=== PATIENT | female | born 1985 | race American Indian/Alaskan Native ===

== ENCOUNTER 2017-08-01 10:08 | Inpatient (IN) | payer BC ==
[2017-07-29 09:14] VITALS: BMI 25.8
[2017-08-01] MEDS ORDERED: Bacitracin Ointment 30 GM TUBE ONE (10:18)
[2017-08-01] MEDS ORDERED: Vasopressin 20 Units/ml Inj ONE (10:19)
[2017-08-01] MEDS ORDERED: cefOXitin IV 1 gm in Dextrose 0 GM/0 ML BAG IVPB ONE (10:19)
[2017-08-01] MEDS ORDERED: Propofol 10 mg/ml Inj (20 ML) ONE (11:39)
[2017-08-01] MEDS ORDERED: Midazolam 2 MG/2 ML VIAL ONE (11:39)
[2017-08-01] MEDS ORDERED: Rocuronium 10 mg/ml (5 ml) ONE ×2 (11:47→12:27)
[2017-08-01] MEDS ORDERED: ceFAZolin 1 gm in NS 2 GM/200 ML BAG IVPB ONE (11:56)
[2017-08-01] MEDS ORDERED: Neostigmine Methylsulfate 3mg/3ml Syringe IV ONE (12:25)
[2017-08-01] MEDS ORDERED: HYDROmorphone 0.5 mg/0.5 ml ISec IVP PRN (14:11)
[2017-08-01] MEDS ORDERED: Sodium Chloride 0.9% 500 ML IV ONE (14:11)
[2017-08-01] MEDS ORDERED: Lactated Ringer's 1,000 ML IV SCH (14:15)
[2017-08-01] MEDS ORDERED: HYDROmorphone 1 mg/ml ISec ONE ×3 (14:23→14:58)
--- NOTE | 2017-08-01 14:32 | PCM.SURG1 ---
Surgeon's Initial Post Op Note - Surgeon's Notes Surgeon: Dr. Turner Joshua Location Worker: Dr. Ortiz Type of Anesthesia: General Endo Anesthesia Administered By: Dr. Dawn Pre-Operative Diagnosis: Multiple Fibroid Uterus Operative Findings: Multiple Fibroids X 12. Pelvic and Omental Adhesion. Right Ovarian cyst, Hemorrhagic Post-Operative Diagnosis: Multiple Fibroid Uterus. Pelvic and Omental Adhesions. Right Ovarian Cyst, Hemorrhagic. Anemia Operation Performed: Multiple Abdominal Myomectomy. Lysis of Pelvic and Omental Adhesions. Aspiration of hemorrhagic ovarian cyst. ( Vertical skin incision. Interceed X 3 placed) Specimen/Specimens Removed: Fibroids Estimated Blood Loss: EBL {In ML}: 800 Blood Products Given: PRBC (2 Units of Pack cells transfused) Drains Used: No Drains Post-Op Condition: Good Date of Surgery/Procedure: 08/01/17 Time of Surgery/Procedure: 12:30
[2017-08-01] MEDS: Oxycodone/Acetaminophen 5/325 mg Tab PO PRN ×2 (19:36→23:36)
[2017-08-01 19:45] LABS: BASO # 0.1 K/uL (0.0-0.2); BASO % 0.5 % (0.0-2.0); EOS % 0.1 % (0.0-4.0); HEMOGLOBIN 9.1 g/dL (11.0-16.0); LYMPH # 1.4 K/uL (1.0-4.3); LYMPH % 8.7 % (20.0-40.0); MEAN CORPUSCULAR HGB CONC 31.7 g/dL (33.0-37.0); MEAN PLATELET VOLUME 8.6 fL (7.2-11.7); MONO # 0.9 K/uL (0.0-0.8); MONO % 5.8 % (0.0-10.0); NEUT # 13.7 K/uL (1.8-7.0); NEUT % 84.9 % (50.0-75.0); PLATELET COUNT 292 K/uL (130-400); RBC 4.33 Mil/uL (3.80-5.20); RED CELL DISTRIBUTION WIDTH 24.1 % (11.5-14.5)
[2017-08-01 19:49] LABS: WHITE BLOOD COUNT 16.1 K/uL (4.8-10.8)
[2017-08-01 19:50] LABS: MEAN CELL VOLUME 66.1 fL (81.0-99.0)
[2017-08-01] MEDS ORDERED: cefOXitin IV 2 gm in Dextrose 2 GM/50 ML BAG IVPB SCH (20:00)
[2017-08-01] MEDS ORDERED: cefOXitin IV 2 gm in Saline 0 GM/0 ML BAG IVPB ONE (20:18)
[2017-08-01] MEDS: cefOXitin 2 GM in Sodium Chloride 0.9% 100 ML IV SCH (20:50)
[2017-08-01 20:59] LABS: ANISOCYTOSIS SLIGHT; HYPOCHROMIC SLIGHT; LYMPHOCYTE 11 % (20-40); MONOCYTE 5 % (0-10); NEUTROPHIL 84 % (50-75); PLATELET ESTIMATE NORMAL (NORMAL); POIKILOCYTOSIS SLIGHT; TOTAL CELLS COUNTED 100
[2017-08-01 21:00] LABS: MICROCYTOSIS SLIGHT; OVALOCYTES SLIGHT
[2017-08-01 21:01] LABS: BURR CELLS SLIGHT; TARGET CELLS SLIGHT
[2017-08-02] MEDS: Morphine 4 MG/ML VIAL IVP PRN ×3 (00:17→11:23)
[2017-08-02] MEDS: cefOXitin 2 GM in Sodium Chloride 0.9% 100 ML IV SCH ×3 (04:18→20:05)
[2017-08-02] MEDS: Oxycodone/Acetaminophen 5/325 mg Tab PO PRN ×5 (05:57→22:07)
[2017-08-02 07:12] LABS: BASO % 0.3 % (0.0-2.0); EOS % 0.2 % (0.0-4.0); HEMOGLOBIN 7.9 g/dL (11.0-16.0); LYMPH # 1.4 K/uL (1.0-4.3); LYMPH % 10.5 % (20.0-40.0); MEAN CELL VOLUME 65.2 fL (81.0-99.0); MEAN CORPUSCULAR HEMOGLOBIN 21.5 pg (27.0-31.0); MEAN CORPUSCULAR HGB CONC 32.9 g/dL (33.0-37.0); MEAN PLATELET VOLUME 8.5 fL (7.2-11.7); MONO # 0.9 K/uL (0.0-0.8); MONO % 7.1 % (0.0-10.0); NEUT # 10.6 K/uL (1.8-7.0); NEUT % 81.9 % (50.0-75.0); NRBC % 0.1 % (0.0-2.0); RBC 3.7 Mil/uL (3.80-5.20); RED CELL DISTRIBUTION WIDTH 24.1 % (11.5-14.5); WHITE BLOOD COUNT 12.9 K/uL (4.8-10.8)
[2017-08-02 07:22] LABS: ALBUMIN 2.8 g/dL (3.5-5.0); ALT/SGPT 14 U/L (9-52); AST/SGOT 17 U/L (14-36); BLOOD UREA NITROGEN 8 mg/dL (7-17); CALCIUM 7.8 mg/dl (8.6-10.4); GFR AFRICAN-AMERICAN > 60; GFR NON-AFRICAN AMERICAN > 60
--- NOTE | 2017-08-02 15:59 | PCM.IRP ---
Chief Complaint: 08-02-17. Abdominal bloating with dropping of Hb from 9.1 to 7.4. P: Transfuse 2 more Units of PC and post-transfusion CBC. Objective - Vital Signs/Intake and Output Vital Signs (last 24 hours): Vital Signs - 24 hr 08/01/17 08/01/17 08/02/17 16:00 19:30 00:00 Temperature 97.1 F L 97.3 F L 99.4 F Pulse Rate 94 H 89 88 Respiratory 20 20 20 Rate Blood Pressure 107/62 105/65 100/58 L O2 Sat by Pulse 98 98 97 Oximetry 08/02/17 08/02/17 08/02/17 06:00 08:00 12:00 Temperature 99.3 F 99.1 F 99.2 F Pulse Rate 99 H 97 H 112 H Respiratory 20 18 18 Rate Blood Pressure 102/58 L 104/63 121/72 O2 Sat by Pulse 97 100 Oximetry 08/02/17 08/02/17 08/02/17 12:05 12:18 12:20 Temperature 99.2 F 100.5 F H 100.5 F H Pulse Rate 112 H 112 H 110 H Respiratory 18 118 H 18 Rate Blood Pressure 121/72 120/81 126/81 O2 Sat by Pulse Oximetry 08/02/17 08/02/17 08/02/17 12:35 13:04 13:05 Temperature 100.2 F H 99.7 F H 99.7 F H Pulse Rate 106 H 103 H 103 H Respiratory 18 18 18 Rate Blood Pressure 122/78 116/69 116/69 O2 Sat by Pulse Oximetry 08/02/17 08/02/17 08/02/17 14:22 14:24 15:36 Temperature 98.5 F 98.5 F 99.1 F Pulse Rate 100 H 100 H 98 H Respiratory 18 18 18 Rate Blood Pressure 117/69 117/69 118/70 O2 Sat by Pulse Oximetry 08/02/17 08/02/17 15:37 15:46 Temperature 99.1 F 99.1 F Pulse Rate 98 H 96 H Respiratory 18 18 Rate Blood Pressure 118/70 118/70 O2 Sat by Pulse Oximetry Intake and Output (last 12 hours): Intake & Output 08/01/17 08/02/17 08/02/17 18:59 06:59 18:59 Intake Total 3450 690 Output Total 480 Balance 2970 690 Intake: IV 2800 Oral 0 Blood Product 650 650 Red Blood Cells Cpd As1 325 Lr Unit [id number] Red Blood Cells Cpd As1 325 Lr Unit [id number] Other 40 Red Blood Cells Cpd As1 40 Lr Unit [id number] Output: Urine 480 Urethral (Ramirez) 80 - Medications Medications: Current Medications Lactated Ringer's (Lactated Ringer's) 1,000 mls @ 125 mls/hr IV .Q8H [facility] Cefoxitin Sodium 2 gm/ Sodium (Chloride) 100 mls @ 50 mls/hr IV Q8H [facility] PRN Reason: Protocol Last Admin: 08/02/17 13:39 Dose: 50 mls/hr Ibuprofen (Motrin Tab) 600 mg PO Q6H PRN PRN Reason: Pain, moderate (4-7) Last Admin: 08/02/17 12:22 Dose: 600 mg Morphine Sulfate (Morphine) 2 mg IVP Q4 PRN PRN Reason: Pain, moderate (4-7) Last Admin: 08/02/17 11:23 Dose: 2 mg Ondansetron HCl (Zofran Inj) 4 mg IVP ONCE PRN PRN Reason: Nausea/Vomiting Oxycodone/Acetaminophen (Percocet 5/325 Mg Tab) 1 tab PO Q4H PRN PRN Reason: Pain, moderate (4-7) Stop: 08/04/17 14:08 Last Admin: 08/02/17 14:15 Dose: 1 tab Simethicone (Mylicon Chew Tab) 160 mg PO QID [facility] - Labs Labs (last 24 hours): Laboratory Results - last 24 hr 08/01/17 08/01/17 08/02/17 10:43 19:39 07:02 WBC 16.1 H D RBC 4.33 Hgb 9.1 L Hct 28.6 L MCV 66.1 L D MCH 21.0 L MCHC 31.7 L RDW 24.1 H Plt Count 292 MPV 8.6 Neut % (Auto) 84.9 H Lymph % (Auto) 8.7 L [place] % (Auto) 5.8 Eos % (Auto) 0.1 Baso % (Auto) 0.5 Neut # (Auto) 13.7 H Lymph # (Auto) 1.4 [place] # (Auto) 0.9 H Eos # (Auto) 0.0 Baso # (Auto) 0.1 Neutrophils % (Manual) 84 H Lymphocytes % (Manual) 11 L Monocytes % (Manual) 5 Platelet Estimate Normal Hypochromasia (manual) Slight Poikilocytosis (manual Slight Anisocytosis (manual) Slight Microcytosis (manual) Slight Target Cells Slight Ovalocytes Slight [place] Cells Slight Sodium 138 Potassium 3.5 L Chloride 104 Carbon Dioxide 23 Anion Gap 14 BUN 8 Creatinine 0.7 Est GFR ( Amer) > 60 Est GFR (Non-Af Amer) > 60 Random Glucose 103 Calcium 7.8 L Total Bilirubin 0.6 AST 17 ALT 14 Alkaline Phosphatase 31 L Total Protein 5.7 L Albumin 2.8 L Globulin 2.9 Albumin/Globulin Ratio 1.0 Blood Type A POSITIVE Antibody Screen Negative 08/02/17 07:02 WBC 12.9 H RBC 3.70 L Hgb 7.9 L Hct 24.1 L MCV 65.2 L MCH 21.5 L MCHC 32.9 L RDW 24.1 H Plt Count 257 MPV 8.5 Neut % (Auto) 81.9 H Lymph % (Auto) 10.5 L [place] % (Auto) 7.1 Eos % (Auto) 0.2 Baso % (Auto) 0.3 Neut # (Auto) 10.6 H Lymph # (Auto) 1.4 [place] # (Auto) 0.9 H Eos # (Auto) 0.0 Baso # (Auto) 0.0 Neutrophils % (Manual) Lymphocytes % (Manual) Monocytes % (Manual) Platelet Estimate Hypochromasia (manual) Poikilocytosis (manual Anisocytosis (manual) Microcytosis (manual) Target Cells Ovalocytes [place] Cells Sodium Potassium Chloride Carbon Dioxide Anion Gap BUN Creatinine Est GFR ( Amer) Est GFR (Non-Af Amer) Random Glucose Calcium Total Bilirubin AST ALT Alkaline Phosphatase Total Protein Albumin Globulin Albumin/Globulin Ratio Blood Type Antibody Screen
[2017-08-02] MEDS: Simethicone 80 mg Chewtab PO SCH ×3 (16:58→22:04)
[2017-08-02 22:22] LABS: BASO # 0.1 K/uL (0.0-0.2); BASO % 0.5 % (0.0-2.0); EOS # 0.3 K/uL (0.0-0.7); EOS % 2.4 % (0.0-4.0); LYMPH % 14.1 % (20.0-40.0); MEAN CORPUSCULAR HEMOGLOBIN 23.2 pg (27.0-31.0); MEAN CORPUSCULAR HGB CONC 32.9 g/dL (33.0-37.0); MEAN PLATELET VOLUME 8.7 fL (7.2-11.7); MONO # 1.2 K/uL (0.0-0.8); MONO % 8.3 % (0.0-10.0); NEUT # 10.4 K/uL (1.8-7.0); NEUT % 74.7 % (50.0-75.0); RBC 4.3 Mil/uL (3.80-5.20); RED CELL DISTRIBUTION WIDTH 25.2 % (11.5-14.5)
[2017-08-02 22:28] LABS: MEAN CELL VOLUME 70.4 fL (81.0-99.0)
[2017-08-02 22:33] LABS: INR 1.5; PROTHROMBIN TIME 17.2 SECONDS (9.7-12.2)
[2017-08-03] MEDS: Oxycodone/Acetaminophen 5/325 mg Tab PO PRN ×5 (01:51→21:59)
[2017-08-03] MEDS: cefOXitin 2 GM in Sodium Chloride 0.9% 100 ML IV SCH ×3 (04:22→20:46)
[2017-08-03 08:57] LABS: INR 1.5; PROTHROMBIN TIME 16.8 SECONDS (9.7-12.2)
[2017-08-03] MEDS: Simethicone 80 mg Chewtab PO SCH ×4 (10:29→22:00)
[2017-08-04] MEDS: Oxycodone/Acetaminophen 5/325 mg Tab PO PRN ×2 (04:08→09:04)
[2017-08-04] MEDS: cefOXitin 2 GM in Sodium Chloride 0.9% 100 ML IV SCH (04:09)
[2017-08-04 07:29] LABS: BASO # 0.1 K/uL (0.0-0.2); BASO % 0.6 % (0.0-2.0); EOS # 0.6 K/uL (0.0-0.7); EOS % 5.7 % (0.0-4.0); HEMOGLOBIN 8.7 g/dL (11.0-16.0); LYMPH % 9.3 % (20.0-40.0); MEAN CELL VOLUME 69.6 fL (81.0-99.0); MEAN CORPUSCULAR HEMOGLOBIN 23.3 pg (27.0-31.0); MEAN CORPUSCULAR HGB CONC 33.4 g/dL (33.0-37.0); MEAN PLATELET VOLUME 8.8 fL (7.2-11.7); MONO # 0.6 K/uL (0.0-0.8); MONO % 5.7 % (0.0-10.0); NEUT # 8.7 K/uL (1.8-7.0); NEUT % 78.7 % (50.0-75.0); PLATELET COUNT 233 K/uL (130-400); RBC 3.75 Mil/uL (3.80-5.20); RED CELL DISTRIBUTION WIDTH 25.3 % (11.5-14.5); WHITE BLOOD COUNT 11.1 K/uL (4.8-10.8)
[2017-08-04 08:48] LABS: ANISOCYTOSIS MODERATE; BANDS 1 % (0-2); EOSINOPHIL 6 % (0-4); LYMPHOCYTE 9 % (20-40); MONOCYTE 5 % (0-10); NEUTROPHIL 79 % (50-75); PLATELET ESTIMATE NORMAL (NORMAL); TOTAL CELLS COUNTED 100
[2017-08-04 08:49] LABS: HYPOCHROMIC SLIGHT; MICROCYTOSIS SLIGHT; OVALOCYTES SLIGHT; POIKILOCYTOSIS SLIGHT; POLYCHROMIC SLIGHT; SCHISTOCYTES SLIGHT; TOXIC GRANULATION PRESENT
[2017-08-04 08:50] LABS: LARGE PLATELETS PRESENT; TARGET CELLS SLIGHT
[2017-08-04 10:47] VITALS: BP 115/73; PULSE 93; RESP 18; TEMP 98.1; O2SAT 99
[2017-08-04] MEDS: Simethicone 80 mg Chewtab PO SCH (11:15)
--- NOTE | 2017-08-04 11:18 | CP.PCM.PN ---
Subjective - Date & Time of Evaluation Date of Evaluation: 08/02/17 Time of Evaluation: 11:00 - Subjective Subjective: Vs stable Abdomen Soft Wound Clean Hb 7.9 P: Transfuse 2 Units of PC Objective - Vital Signs/Intake and Output Vital Signs (last 24 hours): Temp Pulse Resp BP Pulse Ox 98.1 F 93 H 18 115/73 99 08/04/17 08:00 08/04/17 08:00 08/04/17 08:00 08/04/17 08:00 08/04/17 08:00 - Medications Medications: Current Medications Ferrous Sulfate (Feosol) 325 mg PO BID [facility] Last Admin: 08/04/17 11:09 Dose: 325 mg Lactated Ringer's (Lactated Ringer's) 1,000 mls @ 125 mls/hr IV .Q8H [facility] Last Admin: 08/02/17 17:14 Dose: 125 mls/hr Cefoxitin Sodium 2 gm/ Sodium (Chloride) 100 mls @ 50 mls/hr IV Q8H [facility] PRN Reason: Protocol Last Admin: 08/04/17 04:09 Dose: 50 mls/hr Ibuprofen (Motrin Tab) 600 mg PO Q6H PRN PRN Reason: Pain, moderate (4-7) Last Admin: 08/04/17 05:53 Dose: 600 mg Morphine Sulfate (Morphine) 2 mg IVP Q4 PRN PRN Reason: Pain, moderate (4-7) Last Admin: 08/02/17 11:23 Dose: 2 mg Ondansetron HCl (Zofran Inj) 4 mg IVP ONCE PRN PRN Reason: Nausea/Vomiting Oxycodone/Acetaminophen (Percocet 5/325 Mg Tab) 1 tab PO Q4H PRN PRN Reason: Pain, moderate (4-7) Stop: 08/04/17 14:08 Last Admin: 08/04/17 09:04 Dose: 1 tab Simethicone (Mylicon Chew Tab) 160 mg PO QID [facility] Last Admin: 08/03/17 22:00 Dose: 160 mg - Labs Labs: 08/04/17 07:22 08/02/17 07:02 PT 16.8 SECONDS (9.7-12.2) H 08/03/17 08:37 INR 1.5 08/03/17 08:37 APTT 31 SECONDS (21-34) 08/03/17 08:37
--- NOTE | 2017-08-04 11:23 | CP.PCM.PN ---
Subjective - Date & Time of Evaluation Date of Evaluation: 08/04/17 Time of Evaluation: 11:00 - Subjective Subjective: POD #3 NO C/O Patient wants to go home VS Stable Abdomen Soft Wound Clean Pt. transfused 2 Units of PC Hb. 8.9 P: Home today Objective - Vital Signs/Intake and Output Vital Signs (last 24 hours): Temp Pulse Resp BP Pulse Ox 98.1 F 93 H 18 115/73 99 08/04/17 08:00 08/04/17 08:00 08/04/17 08:00 08/04/17 08:00 08/04/17 08:00 - Medications Medications: Current Medications Ferrous Sulfate (Feosol) 325 mg PO BID [facility] Last Admin: 08/04/17 11:09 Dose: 325 mg Lactated Ringer's (Lactated Ringer's) 1,000 mls @ 125 mls/hr IV .Q8H [facility] Last Admin: 08/02/17 17:14 Dose: 125 mls/hr Cefoxitin Sodium 2 gm/ Sodium (Chloride) 100 mls @ 50 mls/hr IV Q8H [facility] PRN Reason: Protocol Last Admin: 08/04/17 04:09 Dose: 50 mls/hr Ibuprofen (Motrin Tab) 600 mg PO Q6H PRN PRN Reason: Pain, moderate (4-7) Last Admin: 08/04/17 05:53 Dose: 600 mg Morphine Sulfate (Morphine) 2 mg IVP Q4 PRN PRN Reason: Pain, moderate (4-7) Last Admin: 08/02/17 11:23 Dose: 2 mg Ondansetron HCl (Zofran Inj) 4 mg IVP ONCE PRN PRN Reason: Nausea/Vomiting Oxycodone/Acetaminophen (Percocet 5/325 Mg Tab) 1 tab PO Q4H PRN PRN Reason: Pain, moderate (4-7) Stop: 08/04/17 14:08 Last Admin: 08/04/17 09:04 Dose: 1 tab Simethicone (Mylicon Chew Tab) 160 mg PO QID [facility] Last Admin: 08/04/17 11:15 Dose: 160 mg - Labs Labs: 08/04/17 07:22 08/02/17 07:02 PT 16.8 SECONDS (9.7-12.2) H 08/03/17 08:37 INR 1.5 08/03/17 08:37 APTT 31 SECONDS (21-34) 08/03/17 08:37
--- NOTE | 2017-08-04 11:28 | CP.PCM.DIS ---
Provider - Provider Date of Admission: 08/01/17 10:08 Pre Op Dx: Multiple Fibroid Uterus Post Op Dx: Same Right Ovarian Cyst Anemia Operation: Multiple Abdominal Myomectomy X 12 Ranging 3-5 Cm Patient transfused 4 Units of PC Hb 8.9 Attending physician: Turner Joshua MD Hospital Course - Lab Results Lab Results: Most Recent Lab Values WBC 11.1 K/uL (4.8-10.8) H 08/04/17 07:22 RBC 3.75 Mil/uL (3.80-5.20) L 08/04/17 07:22 Hgb 8.7 g/dL (11.0-16.0) L 08/04/17 07:22 Hct 26.1 % (34.0-47.0) L 08/04/17 07:22 MCV 69.6 fL (81.0-99.0) L 08/04/17 07:22 MCH 23.3 pg (27.0-31.0) L 08/04/17 07:22 MCHC 33.4 g/dL (33.0-37.0) 08/04/17 07:22 RDW 25.3 % (11.5-14.5) H 08/04/17 07:22 Plt Count 233 K/uL (130-400) 08/04/17 07:22 MPV 8.8 fL (7.2-11.7) 08/04/17 07:22 Neut % (Auto) 78.7 % (50.0-75.0) H 08/04/17 07:22 Lymph % (Auto) 9.3 % (20.0-40.0) L 08/04/17 07:22 [place] % (Auto) 5.7 % (0.0-10.0) 08/04/17 07:22 Eos % (Auto) 5.7 % (0.0-4.0) H 08/04/17 07:22 Baso % (Auto) 0.6 % (0.0-2.0) 08/04/17 07:22 Neut # (Auto) 8.7 K/uL (1.8-7.0) H 08/04/17 07:22 Lymph # (Auto) 1.0 K/uL (1.0-4.3) 08/04/17 07:22 [place] # (Auto) 0.6 K/uL (0.0-0.8) 08/04/17 07:22 Eos # (Auto) 0.6 K/uL (0.0-0.7) 08/04/17 07:22 Baso # (Auto) 0.1 K/uL (0.0-0.2) 08/04/17 07:22 Neutrophils % (Manual) 79 % (50-75) H 08/04/17 07:22 Band Neutrophils % 1 % (0-2) 08/04/17 07:22 Lymphocytes % (Manual) 9 % (20-40) L 08/04/17 07:22 Monocytes % (Manual) 5 % (0-10) 08/04/17 07:22 Eosinophils % (Manual) 6 % (0-4) H 08/04/17 07:22 Toxic Granulation Present 08/04/17 07:22 Platelet Estimate Normal (NORMAL) 08/04/17 07:22 Large Platelets Present 08/04/17 07:22 Polychromasia Slight 08/04/17 07:22 Hypochromasia (manual) Slight 08/04/17 07:22 Poikilocytosis (manual Slight 08/04/17 07:22 Anisocytosis (manual) Moderate 08/04/17 07:22 Microcytosis (manual) Slight 08/04/17 07:22 Target Cells Slight 08/04/17 07:22 Ovalocytes Slight 08/04/17 07:22 [place] Cells Slight 08/01/17 19:39 Schistocytes Slight 08/04/17 07:22 PT 16.8 SECONDS (9.7-12.2) H 08/03/17 08:37 INR 1.5 08/03/17 08:37 APTT 31 SECONDS (21-34) 08/03/17 08:37 Sodium 138 mmol/L (132-148) 08/02/17 07:02 Potassium 3.5 mmol/L (3.6-5.2) L 08/02/17 07:02 Chloride 104 mmol/L (98-107) 08/02/17 07:02 Carbon Dioxide 23 mmol/L (22-30) 08/02/17 07:02 Anion Gap 14 (10-20) 08/02/17 07:02 BUN 8 mg/dL (7-17) 08/02/17 07:02 Creatinine 0.7 mg/dL (0.7-1.2) 08/02/17 07:02 Est GFR ( Amer) > 60 08/02/17 07:02 Est GFR (Non-Af Amer) > 60 08/02/17 07:02 Random Glucose 103 mg/dL (65-105) 08/02/17 07:02 Calcium 7.8 mg/dl (8.6-10.4) L 08/02/17 07:02 Total Bilirubin 0.6 mg/dL (0.2-1.3) 08/02/17 07:02 AST 17 U/L (14-36) 08/02/17 07:02 ALT 14 U/L (9-52) 08/02/17 07:02 Alkaline Phosphatase 31 U/L (38-126) L 08/02/17 07:02 Total Protein 5.7 g/dL (6.3-8.3) L 08/02/17 07:02 Albumin 2.8 g/dL (3.5-5.0) L 08/02/17 07:02 Globulin 2.9 gm/dL (2.2-3.9) 08/02/17 07:02 Albumin/Globulin Ratio 1.0 (1.0-2.1) 08/02/17 07:02 Blood Type A POSITIVE 08/01/17 10:43 Antibody Screen Negative 08/01/17 10:43 Discharge Plan - Follow Up Plan Condition: GOOD Disposition: HOME/ ROUTINE
--- NOTE | 2017-08-11 06:47 | OP ---
PROCEDURE DATE: 08/01/2017 NATURE OF OPERATION: Multiple abdominal myomectomy, aspiration of right ovarian cyst, and lysis of pelvic and omental adhesion. ATTENDING SURGEON: Dr. Turner Joshua. EMERGENCY MEDICAL SERVICE COORDINATOR: Dr. Ortiz. ANESTHESIOLOGIST: Dr. Cintron. TYPE OF ANESTHESIA: General. PREOPERATIVE DIAGNOSIS: Multiple fibroid uterus. POSTOPERATIVE DIAGNOSIS: Multiple fibroid uterus with pelvic and omental adhesion, right ovarian cyst, hemorrhagic and anemia. ESTIMATED BLOOD LOSS: 800 mL. The patient was transfused 2 units of packed cells in the operating room. FINDINGS: The uterus was enlarged to 14-16 weeks' size of with multiple fibroids of varying sizes 3 to 5 cm. 12 of them were removed. The right ovarian cyst reveals hemorrhagic cyst. The left adnexa within normal limit. PROCEDURE: Under general anesthesia, the patient was placed in supine position. The routine prep was done and the anterior abdominal wall was draped. The abdominal cavity was entered through a vertical midline incision. Pelvic organs were palpated and visualized. The omental and pelvic adhesion was done. Self-retaining retractor was placed into the abdominal cavity and bowel loops were packed away using wet gauze packs. The uterus was grasped with the tenaculum forceps on the anterior fundal fibroid and lifted up. Then the multiple leiomyoma were located and multiple myomectomy was initiated on the posterior fundal leiomyoma. Transverse incision was made with electrocautery on the top of the uterine fundus on top of fibroid and then the capsules of fibroid was identified. The fibroid was enucleated from the surrounding capsule. The space was approximated with 0 chromic catgut suture and continuous suture and the serosa was approximated with a #0 chromic continuous interlocking fashion. The same step was repeated on the rest of leiomyoma, 12 leiomyomas were removed. The patient received 2 units of packed cell and hemostasis was secured. Pelvic cavity was irrigated with ____. Then the three Interceed were placed on the multiple incisions. Then the closure was started. Peritoneum was closed with 0 chronic catgut continuous stitch, continuous interlocking stitches of 0 Vicryl for fascia and intraoperative #2-0 plain catheter was used for subcutaneous tissue. The skin was closed with the edwar and the wound was cleaned and sterile dressing was applied. At the end of the procedure, urine was clear. The patient tolerated the procedure well and was transferred to recovery room in satisfactory condition. Turner Joshua MD
== END 2017-08-04 12:00 | disposition home or self-care (01) | DRG 743 ==
LOC: C.9S 10:08 → C.4M 14:47
PROVIDERS: ADMIT Obstetrics & Gynecology Gynecology; ATTEND Obstetrics & Gynecology Gynecology
PROC: 0UB00ZZ Excision of Right Ovary, Open Approach (ICD-10-PCS; 2017-08-01)
PROC: 0UB90ZZ Excision of Uterus, Open Approach (ICD-10-PCS; principal; 2017-08-01 11:30)
DX: D25.9 Leiomyoma of uterus, unspecified (principal); D64.9 Anemia, unspecified; K66.0 Peritoneal adhesions (postprocedural) (postinfection); N83.201 Unspecified ovarian cyst, right side